=== PATIENT | female | born 1960 | race African-American/Black ===

== ENCOUNTER 2016-10-11 05:46 | Inpatient (IN) | payer OTHER ==
[~2016-10-11] VITALS: Ht 157.5 cm; Wt 81.0 kg
[2016-10-11] VITALS (18 sets, daily range): BP systolic 93–145; BP diastolic 52–72; PULSE 81–108; RESP 11–22; Ht 157.5 cm; Wt 81.0 kg
[~2016-10-11 05:46] MED LIST: ATEN-51 PO; CEFAZOLIN 2 GM/50 ML (PMX) 50 ML IVPB ONE; LISI10TA2 PO; LORA10CA PO
[2016-10-11] MEDS ORDERED: LIDOCAINE 2% (MDV) 20 ML INJ ONE (07:00)
[2016-10-11] MEDS ORDERED: POLYMYXIN/BACITRACIN 1L IRRIG ONE (07:00)
[2016-10-11] MEDS ORDERED: BUPIVACAINE 0.5% (SDV) 30 ML INJ ONE (07:00)
[2016-10-11] MEDS ORDERED: SUCCINYLCHOLINE CHLORIDE 100 MG/5 ML SYG IV ONE (07:36)
[2016-10-11] MEDS ORDERED: ROCURONIUM 50 MG INJ ONE (07:36)
[2016-10-11] MEDS ORDERED: PROPOFOL 20 ML ONE (07:36)
[2016-10-11] MEDS ORDERED: LIDOCAINE 2% (SDV) 5 ML INJ ONE (07:36)
[2016-10-11] MEDS ORDERED: MIDAZOLAM 1 MG/ML 2 ML INJ ONE (07:37)
[2016-10-11] MEDS ORDERED: ROPIVACAINE 0.5 % 30 ML VIAL ONE ×2 (07:39→11:24)
--- NOTE | 2016-10-11 07:39 | HPN ---
Date/Time of Note Date/Time of Note DATE: 10/11/16 TIME: 07:38 Interval H&P Admission Note Pt. seen H&P reviewed: No system changes JALIL MENDEZ DPM Oct 11, 2016 07:39
[2016-10-11] MEDS ORDERED: FENTAnyl 50 MCG/ML VIAL ONE (07:45)
[2016-10-11] MEDS ORDERED: PHENYLephrine (100 MCG/ML) 5ML SYG ONE (08:11)
[2016-10-11] MEDS ORDERED: EPHEDrine SULFATE 50 MG/5 ML SYG ONE (08:11)
[2016-10-11] MEDS ORDERED: CEFAZOLIN 1 GM INJ ONE (08:17)
[2016-10-11] MEDS ORDERED: FAMOTIDINE 20 MG INJ ONE (08:28)
[2016-10-11] MEDS ORDERED: METOCLOPRAMIDE 10 MG INJ ONE (08:28)
[2016-10-11] MEDS ORDERED: ONDANSETRON 4 MG INJ ONE (08:28)
[2016-10-11] MEDS ORDERED: DEXAMETHASONE 4 MG/ML 1 ML INJ ONE (08:28)
[2016-10-11] MEDS ORDERED: HYDROmorphONE 2 MG/ML SYG ONE (10:22)
[2016-10-11] MEDS ORDERED: PROCHLORPERAZINE 10 MG INJ IV PRN (11:30)
[2016-10-11] MEDS ORDERED: DIPHENHYDRAMINE 50 MG INJ IV PRN (11:30)
[2016-10-11] MEDS ORDERED: FENTAnyl 50 MCG/ML VIAL IV PRN ×3 (11:30)
[2016-10-11] MEDS ORDERED: HYDROmorphONE (0.2 MG/ML) 10ML SYG IV PRN ×3 (11:30)
[2016-10-11] MEDS ORDERED: MEPERIDINE 25 MG INJ IV PRN (11:30)
[2016-10-11] MEDS ORDERED: ONDANSETRON 4 MG INJ IV PRN ×2 (11:30→17:00)
--- NOTE | 2016-10-11 14:17 | RADRPT ---
PROCEDURE: XR Left Ankle. CLINICAL INDICATION: Left ankle pain. Postop. TECHNIQUE: 3 views. Frontal, lateral, and oblique. COMPARISON: None. FINDINGS: There are 2 cannulated screws transfixing the medial malleolus. There is a tibiotalar joint arthrop lasty which appears satisfactory. Bone detail is obscured by the overlying posterior splint. IMPRESSION: 1. Satisfactory postoperative appearance of the left ankle. RPTAT: QQ .Td Calvert MD, MD Date Time Electronically viewed and signed by .Td Calvert MD, MD on 10/11/2016 14:17 .R/
[2016-10-11] MEDS: OXYCODONE/ACETAMINOPHEN (5/325) TAB PO PRN (16:18)
[2016-10-11] MEDS: LACTATED RINGER'S 1,000 ML IV SCH (16:52)
--- NOTE | 2016-10-11 19:13 | HP ---
Date/Time of Note Date/Time of Note DATE: 10/11/16 TIME: 19:08 Assessment/Plan VTE Prophylaxis VTE Prophylaxis Intervention: heparin Lines/Catheters [facility] ([facility] Peripheral IV Urinary Cath still in place: No Assessment/Plan Problems: (1) Status post left ankle joint replacement Status: Acute Comment: She is stable postop. We will have her on anticoagulant therapy using heparin and follow her along. At this time she is doing well with pain control (2) Essential hypertension Status: Chronic Comment: She will be maintained on her outpatient regimen I have already entered them into the computer (3) Migraine syndrome Status: Chronic Comment: This is been quiescent (4) Obesity (BMI 30.0-34.9) Status: Chronic Comment: Noted and she will be on a calorie restricted diet HPI/ROS Admit Date/Time Admit Date/Time Oct 11, 2016 at 05:46 Hx of Present Illness Obie 56-year-old -Iranian female admitted after total ankle replacement surgery. 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 At this time she is doing well postop without complaints. ROS Left ankle injury and skiing accident July 11, 2015 status post 2 prior attempts at repair Constitutional: no complaints Eyes: no complaints ENT: no complaints Respiratory: no complaints Cardiovascular: no complaints Gastrointestinal: no complaints Genitourinary: no complaints Musculoskeletal: other (Left leg pain) Skin: no complaints Neurologic: no complaints Endocrine: no complaints Lymphatic: no complaints PMH/Family/Social Past Medical History Left ankle injury; hypertension; usual childhood diseases; history of varus sella; migraine syndrome Medical History: hypertension Past Surgical History Status post STEPHANIE without BSO; status post left ankle surgery 2 previously; status post left ankle replacement acute; status post left ear surgery 2; status post cleft palate repair Family History Significant Family History: heart disease, diabetes, hypertension Social History 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 Alcohol Use: none Smoking Status: Former smoker Drug Use: none Exam/Review of Systems Vital Signs Vitals Vital Signs Date Time Temp Pulse Resp B/P Pulse Ox O2 Delivery O2 Flow Rate FiO2 10/11/16 16:00 Nasal Cannula 2.0 10/11/16 16:00 97.4 97 18 124/58 100 Intake and Output 10/10/16 10/10/16 10/11/16 15:00 23:00 07:00 Intake Total 1800 ml Balance 1800 ml Exam Constitutional: alert, oriented Psych: nl mood/affect, no complaints Head: atraumatic, normocephalic Eyes: EOMI, PERRL, nl conjunctiva, nl lids, nl sclera ENMT: mucosa pink and moist, nl external ears & nose, nl lips & teeth, nl nasal mucosa & septum Neck: non-tender, supple Respiratory: clear to auscultation, normal air movement Cardiovascular: nl pulses, regular rate and rhythm Gastrointestinal: nl liver, spleen, non-tender, soft Extremities: other (Left lower extremity in a posterior brace) Medications Medications Current Medications Oxycodone/ Acetaminophen (Percocet (5/ 325)) 1 tab Q4H PRN PO PAIN Last administered on 10/11/16 16:18; Admin Dose 1 TAB; Start 10/11/16 at 12:30 Ondansetron HCl (Zofran Inj) 4 mg Q6H PRN IV NAUSEA AND/OR VOMITING Last administered on 10/11/16 16:49; Admin Dose 4 MG; Start 10/11/16 at 17:00 Morphine Sulfate 1 mg 1 mg Q4H PRN IV PAIN LEVEL 6-10; Start 10/11/16 at 17:00 Lactated Ringer's (Lr) 1,000 ml @ 75 mls/hr [id number] IV Last administered on 16:52; Admin Dose 75 MLS/HR; Start 10/11/16 at 17:00 RACQUEL POP MD Oct 11, 2016 19:12
[2016-10-11] MEDS: LISINOPRIL 10 MG TAB PO SCH (20:34)
[2016-10-11] MEDS: ATENOLOL 25 MG TAB PO SCH (20:35)
--- NOTE | 2016-10-11 23:42 | OPR ---
Date/Time of Note Date/Time of Note DATE: 10/11/16 TIME: 23:42 Operative Report Procedure Date: Oct 11, 2016 Preoperative Diagnosis Left ankle degenerative joint disease Osteochondral defect of the left talus Left ankle pain Status post left ankle arthroscopy Postoperative Diagnosis Left ankle degenerative joint disease Medial malleolar fracture left ankle Osteochondral defect of the left talus Left ankle pain Status post left ankle arthroscopy Operation Performed Left total ankle replacement ORIF medial malleolar fracture left ankle Application of posterior splint left lower extremity Intraoperative use and interpretation of fluoroscopy Surgeon: JALIL MENDEZ DPM Anesthesia: general Estimated Blood Loss: 0 - 10 ml's Specimens Left ankle joint/bone Complications: None Pt Condition Post Procedure: stable Disposition: PACU Indications Pleasant 56-year-old female who is been suffering with chronic left ankle pain for many years. She suffers from a previous accident which caused significant arthritic changes including an osteochondral defect of the talus. She has undergone multiple injections and has had different pain medication and anti- inflammatory medications which did not help with her pain. She is undergone physical therapy. She has undergone recent left ankle arthroscopy with arthroscopic repair of the osteochondral defect of the talus which also did not resolve her pain. Decision was made for more aggressive treatment and the recommendation was a total ankle replacement for the left ankle. Risks and complications of this type of surgery was discussed with patient in great detail. Risks and complications include but are not limited to postoperative infection, postoperative pain, chronic disability, gait disturbance, nerve damage, vascular damage, failure of implant, failure of surgery to correct the problem, need for additional surgical procedures, unforeseen fracture of the ankle, deep venous thrombosis, limb loss and loss of life. Patient understands palpitations discussed and agrees to procedure. Informed consent was obtained, signed and placed in the chart. No guarantee or warranty was given or implied as to the outcome of the procedure either in verbal and written form. Operative\Procedure Findings Generative changes of the left ankle. Procedure Description The patient was seen in the preoperative area. Proposed surgery was discussed in great detail. Risks and complications were discussed. Opportunity was given for patient to ask questions. Questions were answered. An informed consent was obtained, signed and placed in the chart. The patient was then taken to the operating room and was placed in the operating table in the supine position. General anesthesia was administered. A popliteal block was done by the anesthesiologist on the left lower extremity. A thigh tourniquet was applied to the left thigh. All bony prominences appropriately padded. Timeout was called by the circulating nurse. Left lower extremity was scrubbed, prepped and draped in usual aseptic manner. An Esmarch bandage was utilized to exsanguinate the left lower extremity and the thigh tourniquet was inflated at this time. Attention was directed to the left ankle. A 20 cm incision was made over the anterior aspect of the left ankle lateral to the tibialis anterior tendon using a #10 blade. Care was taken to identify and protect neurovascular structures. Dissection was deepened through the subcutaneous tissue into the deep tissue. The extensor retinaculum was identified and transected. The extensor digitorum longus and extensor hallucis longus tendons were identified. Dissection was continued between these 2 tendons and the neurovascular bundle was isolated and protected. The extensor digitorum longus and the tibialis anterior tendon was retracted laterally and the extensor hallucis longus along with the neurovascular bundle was retracted medially exposing the anterior joint capsule of the ankle joint. Bleeders were cauterized as necessary using electrocautery as a dissection was deepened. A longitudinal incision was made over the ankle joint capsule using a #15 blade. The joint capsule was dissected using sharp and blunt dissection and periosteal dissection. Once the ankle joint was fully exposed, retraction was done using FastDue-Allouez retractors with gentle retraction. The C-arm was brought in and initial survey of the ankle joint was done. Next , the pre-fabricated tibial block for the distal tibia was placed and placement was checked under C-arm. K wires were inserted and the tibial block was removed. The distal tibial cutting block was then inserted and secured in place. Retraction of vital neurovascular structures and tendinous structure was done using the FastDue-Allouez. Next, a power saw was used and the tibial cuts were made. The cutting block along with K wires were removed. The tibial component that was cut was removed and passed to the back table. Next, the talar component was applied and secured using K wires. The cutting block for the talus was inserted and the talus was cut. The bone was removed and passed to the back table. All rough edges were then smoothed using a hand rasp. All small bony fragments were removed. Once the cutting was finished, the drill guide for the ankle joint was inserted. The jig was applied to the drill guide and the foot was placed in a neutral position and held in place. The plantar heel was marked and a 1 cm incision was made. Blunt dissection was made to the bone plantarly on the calcaneus. The trocar and obturator were placed in. The trocar was removed and the obturator was fastened in place. Using fluoroscopy, packed drilling was made from plantar all the way into the subtalar joint and into the ankle joint. Next the reaming started with a size 10 reamer. Once the reaming was completed the wound was flushed with copious amounts of sterile normal saline. The tibial components were put together on the back table. We used a 4 stem component for the tibia. Stem was inserted systematically and the tibial plate was inserted as well. Next, the surface of the talus was prepped for insertion of the implant. C-arm was used throughout the process for guidance. The talar component was then inserted after preparation of the talus. C arm was used to verify placement. Next a trial poly-was inserted and was decided that a size 12 poly-will be necessary for a stable ankle. Next the trial was removed and the joint was then flushed again with copious amounts of sterile normal saline. A 12 mm ankle Yadira was inserted. C-arm was used for intraoperative pictures. At this time it was noted that the medial malleolus was fractured. Next, I made a small incision on the medial aspect of the medial malleolus area using a #15 blade. Bleeders were cauterized as necessary. Using fluoroscopy I inserted 2 guidewires from the distal medial malleolus into the distal tibia with the fragment held in reduction using a tenaculum clamp. 2 screws were inserted for fixation of this fracture. Intraoperative pictures were obtained. At this time the implant was inserted and the fracture was repaired. I proceeded to do layer closure starting with the periosteal layer and moving up to the subcutaneous layer using combination of 3 oh and 4-0 Vicryl suture. The tendon sheath for the extensor digitorum longus and extensor hallucis longus tendon was reapproximated along with the anterior ankle retinaculum. Next to subcutaneous layer was closed using 4-0 Vicryl and the skin was closed using 4-0 Monocryl in subcuticular stitch pattern. Steri-Strips were applied. Postoperative injection was not necessary since patient had received a popliteal block by the anesthesiologist. Firth were used to close the plantar heel incision and the medial malleolus incision. The thigh tourniquet was deflated at this time and prompt hyperemic response was noted to the left lower extremity. Sterile dressing was applied. A posterior splint was applied to the left lower extremity. The patient tolerated the procedure and anesthesia well. She was transferred to recovery room with vital signs stable and vascular status intact to the left lower extremity. Patient will be admitted for pain management. Postoperative orders were written. Patient is to remain nonweightbearing on the left lower extremity. Patient will be seen in house. JALIL MENDEZ DPM Oct 11, 2016 23:42
[2016-10-12] MEDS: OXYCODONE/ACETAMINOPHEN (5/325) TAB PO PRN (03:19)
[2016-10-12 05:52] LABS: ADD SCAN DIFF NO
[2016-10-12 06:06] LABS: BASOPHILS % 0.3 % (0.0-2.0); EOSINOPHILS % 0.1 % (0.0-7.0); HEMATOCRIT 32.6 % (37.0-47.0); HEMOGLOBIN 10.7 g/dl (12.0-16.0); LYMPHOCYTES # 2.9 10^3/ul (0.8-2.9); LYMPHOCYTES % 30.7 % (15.0-51.0); MEAN CORPUSCULAR HEMOGLOBIN 31.8 pg (29.0-33.0); MEAN CORPUSCULAR HGB CONC 32.8 g/dl (32.0-37.0); MEAN CORPUSCULAR VOLUME 96.7 fl (82.0-101.0); MEAN PLATELET VOLUME 10.7 fl (7.4-10.4); MONOCYTES % 10.7 % (0.0-11.0); NEUTROPHIL # 5.5 10^3/ul (1.6-7.5); NEUTROPHILS % 57.9 % (39.0-77.0); PLATELET COUNT 248 10^3/UL (140-415); RED BLOOD COUNT 3.37 10^6/ul (4.20-5.40); RED CELL DISTRIBUTION WIDTH 13.5 % (11.5-14.5); WHITE BLOOD COUNT 9.5 10^3/ul (4.8-10.8)
[2016-10-12 06:26] LABS: ALBUMIN 3.6 g/dl (3.3-4.9)
[2016-10-12 06:27] LABS: POTASSIUM 3.9 mmol/L (3.5-5.1)
[2016-10-12 06:29] LABS: ALBUMIN/GLOBULIN RATIO 1.2; BILIRUBIN,INDIRECT 0.2 mg/dl (0-1.1); BILIRUBIN,TOTAL 0.2 mg/dl (0.2-1.3); CREATININE 0.7 mg/dl (0.44-1.00); TOTAL PROTEIN 6.6 g/dl (6.1-8.1)
[2016-10-12 06:30] LABS: CALCIUM 8.9 mg/dl (8.4-10.2)
[2016-10-12] MEDS: LACTATED RINGER'S 1,000 ML IV SCH (06:46)
[2016-10-12 07:26] VITALS: BP 114/64; RESP 18
[2016-10-12] MEDS: morphine 2 MG INJ IV PRN ×2 (08:11→12:36)
[2016-10-12] MEDS: ATENOLOL 25 MG TAB PO SCH ×2 (08:14→22:10)
[2016-10-12] MEDS: LISINOPRIL 10 MG TAB PO SCH (08:17)
[2016-10-12] MEDS ORDERED: HYDROCODONE/APAP (5/325) TAB PO PRN (09:30)
[2016-10-12] MEDS: POLYETHYLENE GLYCOL 17 GM PACKET PO SCH (09:56)
--- NOTE | 2016-10-12 09:59 | PN ---
Date/Time of Note Date/Time of Note DATE: 10/12/16 TIME: 09:57 Assessment/Plan VTE Prophylaxis VTE Prophylaxis Intervention: heparin Lines/Catheters IV [facility]ter Type (from [facility]): Peripheral IV Urinary Cath still in place: No Assessment/Plan Problems: (1) Essential hypertension Status: Chronic Comment: Well-controlled on current medication regimen/continue (2) Obesity (BMI 30.0-34.9) Status: Chronic Comment: On calorie restricted diet (3) Status post left ankle joint replacement Status: Acute Comment: No postoperative complications although she is having some pain. We will adjust pain medications use heparin as DVT prophylaxis and get the patient moving as per the instructions of the operative surgeon Dr. Mendoza Subjective 24 Hr Interval Summary Constitutional: no complaints (Denies fevers chills or sweats) Respiratory: no complaints Cardiovascular: no complaints Gastrointestinal: no complaints Musculoskeletal: other (Pain is at 5- 6 out of 10) Exam/Review of Systems Vital Signs Vitals Vital Signs Date Time Temp Pulse Resp B/P Pulse Ox O2 Delivery O2 Flow Rate FiO2 10/12/16 07:26 98.0 86 18 114/64 99 10/11/16 21:00 Nasal Cannula 2.0 Intake and Output 10/11/16 10/11/16 10/12/16 15:00 23:00 07:00 Intake Total 120 ml 1240 ml Output Total 20 ml 1650 ml Balance 100 ml -410 ml Exam Constitutional: alert, oriented Respiratory: clear to auscultation, normal air movement Cardiovascular: nl pulses, regular rate and rhythm Gastrointestinal: nl liver, spleen, non-tender, soft Results Result Diagram: 10/12/16 0510 10/12/16 0510 Results 24 hrs Laboratory Tests Test 10/11/16 19:45 10/12/16 05:10 Hepatitis B Surface Antigen NEGATIVE Hepatitis C Antibody NEGATIVE White Blood Count 9.5 Red Blood Count 3.37 L Hemoglobin 10.7 L Hematocrit 32.6 L Mean Corpuscular Volume 96.7 Mean Corpuscular Hemoglobin 31.8 Mean Corpuscular Hemoglobin Concent 32.8 Red Cell Distribution Width 13.5 Platelet Count 248 Mean Platelet Volume 10.7 H Neutrophils % 57.9 Lymphocytes % 30.7 Monocytes % 10.7 Eosinophils % 0.1 Basophils % 0.3 Nucleated Red Blood Cells % 0.0 Neutrophils # 5.5 Lymphocytes # 2.9 Monocytes # 1.0 H Eosinophils # 0.0 Basophils # 0.0 Nucleated Red Blood Cells # 0.0 Sodium Level 141 Potassium Level 3.9 Chloride Level 105 Carbon Dioxide Level 30 Anion Gap 10 Blood Urea Nitrogen 11 Creatinine 0.70 Glucose Level 104 Calcium Level 8.9 Total Bilirubin 0.2 Direct Bilirubin 0.00 Indirect Bilirubin 0.2 Aspartate Amino Transf (AST/SGOT) 33 Alanine Aminotransferase (ALT/SGPT) 31 Alkaline Phosphatase 41 L Total Protein 6.6 Albumin 3.6 Globulin 3.00 Albumin/Globulin Ratio 1.20 Medications Medications Current Medications Oxycodone/ Acetaminophen (Percocet (5/ 325)) 1 tab Q4H PRN PO PAIN Last administered on 10/12/16 03:19; Admin Dose 1 TAB; Start 10/11/16 at 12:30 Ondansetron HCl (Zofran Inj) 4 mg Q6H PRN IV NAUSEA AND/OR VOMITING Last administered on 10/11/16 16:49; Admin Dose 4 MG; Start 10/11/16 at 17:00 Morphine Sulfate 1 mg 1 mg Q4H PRN IV PAIN LEVEL 6-10 Last administered on 10/12 08:11; Admin Dose 1 MG; Start 10/11/16 at 17:00 Lactated Ringer's (Lr) 1,000 ml @ 75 mls/hr [id number] IV Last administered on 06:46; Admin Dose 75 MLS/HR; Start 10/11/16 at 17:00 Atenolol (Tenormin) 12.5 mg BID PO Last administered on 10/12/16 08:14; Admin Dose 12.5 MG; Start 10/11/16 at 21:00 Lisinopril (Zestril) 10 mg DAILY PO Last administered on 10/12/16 08:17; Admin Dose 10 MG; Start 10/11/16 at 19:30 Heparin Sodium (Porcine) (Heparin (5000 Units/0.5 ml)) 5,000 unit Q8 SC ; Start 10/12/16 at 09:30 Acetaminophen/ Hydrocodone Bitart ([place] (5/325)) 1 tab Q4H PRN PO MILD PAIN LEVEL 1-3; Start 10/12/16 at 09:30 Acetaminophen/ Hydrocodone Bitart ([place] (5/325)) 2 tab Q4H PRN PO MODERATE PAIN LEVEL 4-6; Start 10/12/16 at 09:30 Polyethylene Glycol (Miralax) 17 gm DAILY PO ; Start 10/12/16 at 09:30 RACQUEL POP MD Oct 12, 2016 09:58
[2016-10-12] MEDS: HEPARIN 5,000 UNIT/0.5 ML SYG SC SCH ×3 (10:00→22:40)
--- NOTE | 2016-10-12 15:04 | RADRPT ---
PROCEDURE: Intraoperative imaging of the left ankle with fluoroscopy. CLINICAL INDICATION: Left ankle pain. Intraoperative. TECHNIQUE: A single lateral image of the left ankle was obtained in the operating room with an iban ge intensifier. No radiologist was in attendance. 0.1 minutes of fluoroscopy time was used. COMPARISON: 01/12/2016 FINDINGS: Images demonstrate a tibiotalar joint arthroplasty. Alignment is grossly satisfactory. IMPRESSION: 1. Intraoperative imaging of the left ankle. RPTAT: QQ .Td Calvert MD, Date Time Electronically viewed and signed by .Td Calvert MD, on 10/12/2016 15:03 .R/
--- NOTE | 2016-10-12 15:07 | RADRPT ---
Vent Rate: 93 bpm RR Interval: 0 msec NV Interval: 154 msec QRS Duration: 72 msec QT Interval: 344 msec QTC Interval: 427 msec P-R-T [place]: 55 - -12 - 61 degrees Normal sinus rhythm Normal ECG Electronically Signed By: Deshawn Valente [id number]
[2016-10-12] MEDS: HYDROCODONE/APAP (5/325) TAB PO PRN ×3 (15:16→23:33)
[2016-10-12 19:44] VITALS: BP 135/71; RESP 20
--- NOTE | 2016-10-12 22:48 | PN ---
Date/Time of Note Date/Time of Note DATE: 10/12/16 TIME: 22:48 Assessment/Plan Lines/Catheters IV Catheter Type (from [facility]): Peripheral IV Mooney in Place (from [facility]): No Exam/Review of Systems Vital Signs Vitals Vital Signs Date Time Temp Pulse Resp B/P Pulse Ox O2 Delivery O2 Flow Rate FiO2 10/12/16 19:44 97.6 89 20 135/71 97 10/12/16 08:00 Nasal Cannula 2.0 Intake and Output 10/11/16 10/11/16 10/12/16 15:00 23:00 07:00 Intake Total 120 ml 1240 ml Output Total 20 ml 1650 ml Balance 100 ml -410 ml Results Result Diagram: 10/12/16 0510 10/12/16 0510 JALIL MENDEZ DPM Oct 12, 2016 22:48
[2016-10-13] MEDS: HYDROCODONE/APAP (5/325) TAB PO PRN ×4 (03:49→19:52)
[2016-10-13] MEDS: HEPARIN 5,000 UNIT/0.5 ML SYG SC SCH ×3 (06:38→21:48)
[2016-10-13 07:30] VITALS: BP 120/66; RESP 16
[2016-10-13] MEDS: LISINOPRIL 10 MG TAB PO SCH (09:15)
[2016-10-13] MEDS: POLYETHYLENE GLYCOL 17 GM PACKET PO SCH (09:16)
[2016-10-13] MEDS: ATENOLOL 25 MG TAB PO SCH ×2 (09:16→21:23)
--- NOTE | 2016-10-13 12:29 | PN ---
Date/Time of Note Date/Time of Note DATE: 10/13/16 TIME: 12:27 Assessment/Plan VTE Prophylaxis VTE Prophylaxis Intervention: heparin Lines/Catheters IV Catheter Type (from [facility]): [place] Lock Urinary Cath still in place: No Assessment/Plan Problems: (1) Essential hypertension Status: Chronic Comment: Well-controlled on oral medications as established by her consistent outpatient therapy. No evidence of endorgan damage (2) Status post left ankle joint replacement Status: Acute Comment: Coming along nicely. Awaiting physical therapy to coordinate with case management for discharge planning. Will go home with sony Villareal for pain medication Subjective 24 Hr Interval Summary Free Text/Dictation Obie 56-year-old -French female lying in bed. She reports she is no longer taking it intravenous or parenteral pain medications and is managing find ways to deal with her discomfort. She complains of constipation Constitutional: no complaints (No fever chills or sweats) Respiratory: no complaints Cardiovascular: no complaints Gastrointestinal: constipation Genitourinary: no complaints Musculoskeletal: other (Ankle pain on the left) Exam/Review of Systems Vital Signs Vitals Vital Signs Date Time Temp Pulse Resp B/P Pulse Ox O2 Delivery O2 Flow Rate FiO2 10/13/16 07:30 98.0 81 16 120/66 98 10/12/16 08:00 Nasal Cannula 2.0 Intake and Output 10/12/16 10/12/16 10/13/16 15:00 23:00 07:00 Intake Total 800 ml 840 ml 800 ml Output Total 1300 ml 900 ml Balance 800 ml -460 ml -100 ml Exam Constitutional: alert, oriented Neck: non-tender, supple Respiratory: clear to auscultation, normal air movement Cardiovascular: nl pulses, regular rate and rhythm Gastrointestinal: nl liver, spleen, non-tender, soft Results Result Diagram: 10/12/16 0510 10/12/16 0510 Medications Medications Current Medications Oxycodone/ Acetaminophen (Percocet (5/ 325)) 1 tab Q4H PRN PO PAIN Last administered on 10/12/16 03:19; Admin Dose 1 TAB; Start 10/11/16 at 12:30 Ondansetron HCl (Zofran Inj) 4 mg Q6H PRN IV NAUSEA AND/OR VOMITING Last administered on 10/11/16 16:49; Admin Dose 4 MG; Start 10/11/16 at 17:00 Morphine Sulfate (morphine) 1 mg Q4H PRN IV PAIN LEVEL 6-10 Last administered on 10/12/16 12:36; Admin Dose 1 MG; Start 10/11/16 at 17:00 Atenolol (Tenormin) 12.5 mg BID PO Last administered on 10/13/16 09:16; Admin Dose 12.5 MG; Start 10/11/16 at 21:00 Lisinopril (Zestril) 10 mg DAILY PO Last administered on 10/13/16 09:15; Admin Dose 10 MG; Start 10/11/16 at 19:30 Heparin Sodium (Porcine) (Heparin (5000 Units/0.5 ml)) 5,000 unit Q8 SC Last administered on 10/13/16 06:38; Admin Dose 5,000 UNIT; Start 10/12/16 at 09:30 Acetaminophen/ Hydrocodone Bitart ([place] (5/325)) 1 tab Q4H PRN PO MILD PAIN LEVEL 1-3 Last administered on 10/12/16 09:56; Admin Dose 1 TAB; Start at 09:30 Acetaminophen/ Hydrocodone Bitart ([place] (5/325)) 2 tab Q4H PRN PO MODERATE PAIN LEVEL 4-6 Last administered on 10/13/16 09:13; Admin Dose 2 TAB; Start at 09:30 Polyethylene Glycol (Miralax) 17 gm DAILY PO Last administered on 10/13/16 09: 16; Admin Dose 17 GM; Start 10/12/16 at 09:30 RACQUEL POP MD Oct 13, 2016 12:29
[2016-10-13] MEDS ORDERED: MAGNESIUM CITRATE 300 ML BTL PO SCH (14:00)
[2016-10-13] MEDS ORDERED: DOCUSATE SODIUM 100 MG CAP PO PRN (16:00)
[2016-10-13 20:16] VITALS: BP 145/78; RESP 16
[2016-10-14] MEDS: HYDROCODONE/APAP (5/325) TAB PO PRN ×3 (01:09→13:36)
[2016-10-14] MEDS: HEPARIN 5,000 UNIT/0.5 ML SYG SC SCH ×2 (06:04→14:26)
[2016-10-14 07:37] VITALS: BP 137/71; RESP 16
[2016-10-14] MEDS: ATENOLOL 25 MG TAB PO SCH (08:07)
[2016-10-14] MEDS: LISINOPRIL 10 MG TAB PO SCH (08:07)
[2016-10-14] MEDS: POLYETHYLENE GLYCOL 17 GM PACKET PO SCH (08:08)
--- NOTE | 2016-10-14 08:26 | PDOCDIS ---
Discharge Instructions DIAGNOSIS Discharge Diagnosis: Status post left ankle replacement surgery. CONDITION Patient Condition: Fair HOME CARE INSTRUCTIONS: Diet Instructions: Reduced Calorie ACTIVITY: Activity Restrictions: Slowly Increase Activity Do not operate Machinery Do not operate Power Tool Keep Limb Elevated FOLLOW UP/APPOINTMENTS Appointments Dr. Mendoza in 1 week RACQUEL POP MD Oct 14, 2016 08:26
[2016-10-14] MEDS ORDERED: HYDR-3498 PO (08:27)
--- NOTE | 2016-10-14 08:30 | DS ---
Date/Time of Note Date/Time of Note DATE: 10/14/16 TIME: 08:28 Discharge Summary Admission/Discharge Info Admit Date/Time Oct 11, 2016 at 05:46 Discharge Date/Time 10/14/2016 Final Diagnosis Osteoarthrosis; status post left ankle joint replacement surgery; hypertension; obesity Patient Condition: Fair Consults Internal medicine Procedures Operation Performed Left total ankle replacement ORIF medial malleolar fracture left ankle Application of posterior splint left lower extremity Intraoperative use and interpretation of fluoroscopy Hx of Present Illness Obie 56-year-old -[place] female admitted after total ankle replacement surgery. 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 At this time she is doing well postop without complaints. Hospital Course She was successfully postop and maintained on anticoagulation using heparin. There were no evidence of untoward complications throughout the hospital stay. She slowly progressed with physical therapy and had decreasing need for analgesics. She is now discharged home in improved condition. Her rehabilitation potential is good she is competent for medical decisions she has no known chemical diseases she is not a hazard to herself or others. She will need home physical therapy will follow up with Dr. Mendoza within 1 week at the [facility] Home Meds Active Scripts Hydrocodone Bit-Acetaminophen (Hydrocodone Bit-APAP) 5-325MG Tablet, 2 TAB PO Q4H Y for MODERATE PAIN LEVEL 4-6 for 10 Days, #80 TAB Prov:RACQUEL POP MD 10/14/16 Reported Medications Loratadine* (Claritin*) 10 Mg Capsule, 10 MG PO DAILY, CAP 01/12/16 Atenolol* (Atenolol*) 25 Mg Tablet, 12.5 MG PO BID, #60 TAB 01/12/16 Lisinopril* (Lisinopril*) 10 Mg Tablet, 10 MG PO DAILY, #30 TAB 01/12/16 Follow-up Plan Dr. Mendoza at [facility] RACQUEL POP MD Oct 14, 2016 08:30
== END 2016-10-14 15:05 | disposition home health service (06) | DRG 470 ==
LOC: REC 05:46 → MS2 15:05
PROVIDERS: ADMIT Podiatrist Foot & Ankle Surgery; ATTEND Podiatrist Foot & Ankle Surgery
PROC: 0QSH04Z Reposition Left Tibia with Internal Fixation Device, Open Approach (ICD-10-PCS; 2016-10-11)
PROC: 0SRG0JZ Replacement of Left Ankle Joint with Synthetic Substitute, Open Approach (ICD-10-PCS; principal; 2016-10-11 07:30)
DX: M19.072 Primary osteoarthritis, left ankle and foot (principal); I10 Essential (primary) hypertension; E66.9 Obesity, unspecified; M21.6X2 Other acquired deformities of left foot; S82.52XA Displaced fracture of medial malleolus of left tibia, initial encounter for closed fracture; Z68.32 Body mass index [BMI] 32.0-32.9, adult; X58.XXXA Exposure to other specified factors, initial encounter; Y92.89 Other specified places as the place of occurrence of the external cause
CPT/HCPCS: 73610; 80053; 85025; 86803; 87340; 88304; 88311; 93005; 97116; 97162; 97530; C1776; J0330; J0690; J1100; J1170; J1644; J2250; J2270; J2370; J2405; J2765; J2795; J3010; J7120